=== PATIENT | male | born 1985 | race Caucasian/White ===

== ENCOUNTER → 2016-11-15 | Outpatient (CLI) | payer MEDICARE, MEDICAID ==
[2016-11-15 20:03] LABS: MEAN CORPUSCULAR HEMOGLOBIN 30.4 PG (26.0-34.0); MEAN PLATELET VOLUME 8.9 FL (6.0-9.5); WHITE BLOOD COUNT 6.74 10^3uL (4.0-11.0)
[2016-11-15 20:07] LABS: MEAN CORPUSCULAR HGB CONC 35.9 g/dL (31.0-37.0)
== END ==
LOC: LAB 19:35
PROVIDERS: ATTEND Family Medicine
DX: R63.4 Abnormal weight loss (principal)
CPT/HCPCS: 36415; 85027

== ENCOUNTER 2017-01-06 14:27 | Emergency (ER) | payer MEDICARE, MEDICAID ==
[~2017-01-06] VITALS: Ht 182.9 cm; Wt 54.0 kg
[~2017-01-06 14:27] MED LIST: AC325T PO; AMOX-358 PO; AMOX1TAB12 PO; BACI28.32 TOP; BISM525O18 PO; CALA120L5 TOP; CEPH-507 PO; CHOL100092 PO; CHOL200018 PO; DIAZ10TA PO; DIAZ1KIT4 RC; DIAZ5TAB3 PO; DIVA500T15 PO; DIVA500T7 PO; DVL500TSR PO; FEXO1TAB40 PO; IBP200T PO; IBUP200C PO; LACO200T2 PO; LACO50TA2 PO; LEVE500T PO; LORA10CA PO; MAGN400O7 PO; MIRT30TA3 PO; NF-FLON16G; NITR100C3 PO; NS.65NA45; POTA-57 PO; POTA20TA28 PO; TOLN150S2 TP; [UNRECOGNIZED DRUG - CODE] PO
--- NOTE | 2017-01-06 14:40 | NUR ---
Staff state that they have gotten an order for [employer] to come in and help with fluids when pt has come in for this in the past.
[2017-01-06 15:54] LABS: BASOPHILS % (AUTO) 1 % (0-2); EOSINOPHILS # (AUTO) 0.5 10^3uL; EOSINOPHILS % (AUTO) 6 % (0-4); MEAN CORPUSCULAR HGB CONC 34.1 g/dL (31.0-37.0); MEAN CORPUSCULAR VOLUME 88 FL (80-100); MEAN PLATELET VOLUME 9.7 FL (6.0-9.5); MONOCYTES # (AUTO) 0.6 X10^3; MONOCYTES % (AUTO) 7 % (3-11); NEUTROPHILS # (AUTO) 5.2 X10^3; NEUTROPHILS % (AUTO) 62 % (51-67); PLATELET COUNT 95 10^3uL (150-450); WHITE BLOOD COUNT 8.38 10^3uL (4.0-11.0)
[2017-01-06 16:17] LABS: ALBUMIN 4.6 g/dL (3.4-5.0); ANION GAP 21.9 MEQ/L (3-15); CALCULATED IONIZED CALCIUM 3.9 mg/dL (3.8-4.6); TOTAL PROTEIN 7.7 g/dL (6.4-8.5)
[2017-01-06 17:12] VITALS: BP 99/61
== END 2017-01-06 17:14 | disposition home or self-care (01) ==
LOC: ED 14:28
DX: E86.0 Dehydration (principal); B34.9 Viral infection, unspecified
CPT/HCPCS: 36415; 80053; 85025; 96360; 99283; J7030; 99282